=== PATIENT | male | born 1985 | race Caucasian/White ===

== ENCOUNTER 2025-03-16 20:32 | Observation (INO) | payer OTHER ==
[2025-03-16 20:59] VITALS: BMI 25.8
[2025-03-16] MEDS ORDERED: ONDANSETRON 4 MG/2 ML VIAL ONE (21:16)
[2025-03-16] MEDS ORDERED: PANTOPRAZOLE SODIUM 40 MG VIAL ONE (21:16)
[2025-03-16] MEDS ORDERED: ACETAMINOPHEN INJECTION 100 ML ONE (21:16)
[2025-03-16] MEDS: PANTOPRAZOLE SODIUM 40 MG VIAL IVPUSH ONE (21:23)
[2025-03-16] MEDS: ONDANSETRON 4 MG/2 ML VIAL IVPUSH ONE (21:23)
[2025-03-16] MEDS: ACETAMINOPHEN 1000 MG/100 ML BAG IVPB ONE (21:23)
[2025-03-16 21:36] LABS: ABSOLUTE IMMATURE GRANULOCYTES 0.01 x10^3/uL (0.0-0.031); BASOPHILS # 0.03 x10^3/uL (0.01-0.08); EOSINOPHIL % 0.7 % (0.8-7.0); EOSINOPHILS # 0.07 x10^3/uL (0.04-0.54); HEMATOCRIT 44.8 % (40.1-51.0); HEMOGLOBIN 15.6 g/dL (13.7-17.5); MCHC 34.8 g/dl (32.3-36.5); MEAN CELL VOLUME 81.9 fl (79.0-92.2); MEAN PLT VOLUME 9.7 fl (9.4-12.4); MONOCYTE # 0.67 x10^3/uL (0.30-0.82); MONOCYTE % 6.3 % (5.3-12.2); PLATELET COUNT 257 x10^3/uL (163-337); RDW 11.6 % (12.0-15.6)
[2025-03-16 21:42] LABS: INR 0.99 (0.83-1.09)
[2025-03-16 21:54] LABS: ALBUMIN 4.8 g/dl (3.4-5.0); BILIRUBIN,TOTAL 0.5 mg/dl (0.2-1); CALCIUM 10.2 mg/dl (8.5-10.1); CREATININE 1.2 mg/dl (0.6-1.3); POTASSIUM 3.8 mmol/L (3.5-5.1); TOT PROT 6.9 g/dl (6.4-8.2)
[2025-03-16] MEDS: SODIUM CHLORIDE 0.9% 1000 ML INFUS.BAG IV ONE (22:35)
[2025-03-16] MEDS ORDERED: PIPERACILLIN/TAZOBACTAM 4.5 GM VIAL IVPB ONE (22:45)
[2025-03-16] MEDS ORDERED: morphine SULFATE 4 MG/ML VIAL ONE (22:45)
[2025-03-16] MEDS: PIPERACILLIN/TAZOB 4.5 GM 4.5 GM in DEXTROSE 5%-WATER 100 ML IVPB ONE (22:51)
[2025-03-16] MEDS: morphine CARPU-JECT 4 MG/1 ML DISP.SYRIN IVPUSH ONE (22:52)
[2025-03-16] MEDS ORDERED: DOCUSATE SODIUM 100 MG CAPSULE (FP) PO PRN (23:30)
[2025-03-16] MEDS ORDERED: DEXTROSE 5%-NORMAL SALINE 1,000 ML IV SCH (23:45)
[2025-03-17] MEDS ORDERED: ONDANSETRON 4 MG/2 ML VIAL IVPUSH PRN ×3 (03:00→17:55)
[2025-03-17] MEDS ORDERED: PIPERACILLIN/TAZOB 3.375 GM 3.375 GM in DEXTROSE 5%-WATER - 50 ML IVPB SCH (06:00)
[2025-03-17] MEDS: PIPERACILLIN/TAZOB 3.375 GM 3.375 GM in DEXTROSE 5%-WATER - 50 ML IVPB SCH ×2 (06:19→15:24)
[2025-03-17 07:49] LABS: ABSOLUTE IMMATURE GRANULOCYTES 0.01 x10^3/uL (0.0-0.031); BASOPHILS # 0.02 x10^3/uL (0.01-0.08); EOSINOPHIL % 0.6 % (0.8-7.0); EOSINOPHILS # 0.06 x10^3/uL (0.04-0.54); HEMATOCRIT 42.1 % (40.1-51.0); HEMOGLOBIN 14.4 g/dL (13.7-17.5); MCHC 34.2 g/dl (32.3-36.5); MEAN CELL VOLUME 83.9 fl (79.0-92.2); MEAN PLT VOLUME 9.5 fl (9.4-12.4); MONOCYTE # 0.92 x10^3/uL (0.30-0.82); MONOCYTE % 9.4 % (5.3-12.2); PLATELET COUNT 227 x10^3/uL (163-337); RDW 11.7 % (12.0-15.6)
[2025-03-17 08:41] LABS: MAGNESIUM 1.7 mg/dL (1.8-2.4); POTASSIUM 3.8 mmol/L (3.5-5.1)
[2025-03-17] MEDS ORDERED: MAGNESIUM SULF 50% (8.12 MEQ/2 ML-1 GM VIAL) IVPB ONE (09:09)
[2025-03-17] MEDS: PANTOPRAZOLE SODIUM 40 MG VIAL IVPUSH SCH (09:27)
[2025-03-17] MEDS: MAGNESIUM 1GM/D5W - 1 GM/100 ML IVPB IVPB ONE (09:28)
[2025-03-17] MEDS ORDERED: PANTOPRAZOLE 40 MG TABLET PO SCH (10:00)
[2025-03-17] MEDS ORDERED: LIDOCAINE HCL/PF 2% SDV 5ML VIAL ONE (10:22)
[2025-03-17] MEDS ORDERED: PROPOFOL 60 ML ONE (10:22)
[2025-03-17] MEDS ORDERED: ONDANSETRON 4 MG/2 ML VIAL ONE (10:22)
[2025-03-17] MEDS ORDERED: MIDAZOLAM HCL 2 MG/2 ML SINGLE DOSE VIAL ONE (10:22)
[2025-03-17] MEDS ORDERED: DEXAMETHASONE SOD PHOSPHATE 4 MG/1 ML VIAL ONE (10:22)
[2025-03-17] MEDS ORDERED: BUPIVACAINE HCL/PF 0.5% (5MG/ML) 10 ML VIAL ONE (10:23)
[2025-03-17] MEDS ORDERED: ROCURONIUM BROMIDE 50 MG/5 ML SYRINGE ONE (10:30)
[2025-03-17] MEDS ORDERED: SUCCINYLCHOLINE CHLORIDE 200 MG/10 ML SYRINGE ONE (10:34)
[2025-03-17] MEDS ORDERED: BUPIVACAINE HCL/PF 2.5 MG/ML - 30 ML VIAL IJ ONE (11:52)
[2025-03-17] MEDS ORDERED: SUGAMMADEX SODIUM 200 MG/2 ML VIAL ONE (12:36)
[2025-03-17] MEDS ORDERED: oxyCODONE HCL 5 MG TABLET PO PRN (13:17)
[2025-03-17] MEDS: LACTATED RINGERS SOLUTION 1,000 ML IV SCH (15:23)
[2025-03-17] MEDS: DEXTROSE 5%-NORMAL SALINE 1,000 ML IV SCH ×2 (15:23→18:20)
[2025-03-17] MEDS: ACETAMINOPHEN 1000 MG/100 ML BAG IVPB ONE (18:19)
[2025-03-17] MEDS ORDERED: ACETAMINOPHEN 1000 MG/100 ML BAG IVPB SCH (20:00)
[2025-03-17] MEDS: KETOROLAC TROMETHAMINE 15 MG/ML VIAL IVPUSH SCH (21:27)
[2025-03-17] MEDS: oxyCODONE HCL 5 MG TABLET PO PRN (22:55)
[2025-03-18 02:08] VITALS: RESP 18
[2025-03-18] MEDS ORDERED: ACETAMINOPHEN 500 MG TABLET (FP) PO PRN (04:28)
[2025-03-18] MEDS: PANTOPRAZOLE SODIUM 40 MG VIAL IVPUSH SCH (09:33)
[2025-03-18] MEDS ORDERED: PANTOPRAZOLE SODIUM 40 MG VIAL IVPUSH SCH (10:00)
[2025-03-18 10:13] VITALS: BP 110/66; PULSE 81; TEMP 98.1
== END 2025-03-18 13:15 | disposition home or self-care (01) ==
LOC: FER 20:32 → FM/S 22:31 → UNDOADMOB 23:31 → FM/S 23:31
PROVIDERS: ADMIT Internal Medicine; ATTEND Internal Medicine
PROC: 3E033NZ Introduction of Analgesics, Hypnotics, Sedatives into Peripheral Vein, Percutaneous Approach (ICD-10-PCS; 2025-03-16)
PROC: 3E0337Z Introduction of Electrolytic and Water Balance Substance into Peripheral Vein, Percutaneous Approach (ICD-10-PCS; 2025-03-16)
PROC: 3E0333Z Introduction of Anti-inflammatory into Peripheral Vein, Percutaneous Approach (ICD-10-PCS; 2025-03-16)
PROC: 3E033GC Introduction of Other Therapeutic Substance into Peripheral Vein, Percutaneous Approach (ICD-10-PCS; 2025-03-16)
PROC: 3E03329 Introduction of Other Anti-infective into Peripheral Vein, Percutaneous Approach (ICD-10-PCS; 2025-03-16)
PROC: 0FT44ZZ Resection of Gallbladder, Percutaneous Endoscopic Approach (ICD-10-PCS; principal; 2025-03-17 11:59)
DX: K81.0 Acute cholecystitis (principal); E83.52 Hypercalcemia; K21.9 Gastro-esophageal reflux disease without esophagitis
CPT/HCPCS: 36415; 71045-TC-FY; 76705-TC; 80048; 80053; 83690; 83735; 84484; 85025; 85610; 85730; 86850; 86900; 86901; 88304-TC; 93005; 94760; 99285-25; G0378; J0131